=== PATIENT | female | born 1960 | race Caucasian/White ===

== ENCOUNTER 2021-05-13 19:29 | Emergency (ER) | payer BC ==
[~2021-05-13 19:29] MED LIST: IBUPROFEN600 MG PO; NORCO 5-325 TA1 EACH PO
[2021-05-13] MEDS ORDERED: HYDROCODON-ACE1 EAC4 PO (23:13)
[2021-05-13] MEDS ORDERED: IBUPROFEN800 MG PO (23:13)
== END 2021-05-14 06:36 | disposition home or self-care (01) ==
LOC: ER1 19:29
DX: S52.591A Other fractures of lower end of right radius, initial encounter for closed fracture (principal); Z79.899 Other long term (current) drug therapy; F17.210 Nicotine dependence, cigarettes, uncomplicated; W23.0XXA Caught, crushed, jammed, or pinched between moving objects, initial encounter
CPT/HCPCS: 25605; 73110; 94760; 96374; 96375; 99152; 99283; J2270; J2405; J2704